=== PATIENT | female | born 1975 | race Caucasian/White ===

== ENCOUNTER 2016-09-07 11:02 | Emergency (ER) | payer OTHER ==
[~2016-09-07] VITALS: Ht 152.4 cm; Wt 57.5 kg
[~2016-09-07 11:02] MED LIST: IBUP-2070 PO; PREN1TAB80 PO
[2016-09-07 13:45] VITALS: BP 112/84
== END 2016-09-07 13:47 | disposition home or self-care (01) ==
LOC: EMS 11:04
DX: R20.0 Anesthesia of skin (principal); R29.810 Facial weakness
CPT/HCPCS: 70450; 99284